=== PATIENT | female | born 1965 | race Caucasian/White ===

== ENCOUNTER 2025-01-08 09:35 | Emergency (ER) | payer BC, SELFPAY ==
[2025-01-08 09:37] VITALS: BP 218/135
--- NOTE | 2025-01-08 10:10 | ED.GENMED ---
History of Present Illness
General
Chief Complaint: Blood Pressure Problem
Source: patient
Time Seen by Provider: 01/08/25 09:57
History of Present Illness
History of Present Illness:
59-year-old female presents to the emergency room for evaluation of elevated blood pressure. Patient was advised to seek treatment by her dentist few days ago when she had gone for a crown. They took her blood pressure several times noting it to
be high in the 190s. Patient has taken her blood pressure several times with a cuff at home and at [facility] it has always been pretty high. She denies any significant chest pain, shortness of breath, abdominal pain or back pain. She does occasionally
feel like her right eye twitches. She has some right shoulder pain which she attributes to Pilates. During the night while sleeping she is having some chest discomfort which is gone now. This prompted her to finally come for evaluation. She does
have a primary care doctor but has not seen them in a couple years. She does not recall ever being advised to start blood pressure medication. She does not smoke or drink alcohol.
Phy Exam
Physical Exam
Physical Exam:
General: Awake, Alert, Oriented X3. No acute distress.
Vitals: Hypertensive
Head: Atraumatic
Eyes: Pupils equal, EOMI
Throat: Airway intact, no exudates
Neck: Trachea midline
Lungs: Clear and equal b/l
Heart: Regular rate, no murmurs
Abd: Soft, Nontender, No pulsatile mass
Neuro: Nonfocal
Skin: Warm, dry, no rash
Extremities: pulses equal b/l, no edema
Course
Orders/Labs/Results
Orders:
Orders
01/08/25 09:36
Electrocardiogram (*1) Urgent
Reason for Study: Chest Pain
EKG- Treatment ONCE
01/08/25 10:28
Basic Metabolic Panel Urgent
Complete Blood Count/With Diff Urgent
TSH Reflex To Free T4 Urgent
Troponin I Urgent
Abnormal Lab Results
01/08/25
10:28
WBC 3.5 L 10^3/uL
(4.8-10.8)
RBC 4.12 L 10^6/uL
(4.20-5.40)
MCH 31.3 H pg
(27.0-31.0)
MPV 10.7 H fL
(7.4-10.4)
Absolute Lymphs (auto) 1.1 L 10^3/uL
(1.2-3.4)
Monocytes % 12.1 H %
(1.7-9.3)
Glucose 102 H mg/dl
(70-99)
01/08/25 10:28
01/08/25 10:28
Vital Signs
Initial and Last Documented VS:
Initial Vital Signs
Temp Pulse Resp BP Pulse Ox
98.4 F 83 16 218/135 99
01/08/25 09:37 01/08/25 09:37 01/08/25 09:37 01/08/25 09:37 01/08/25 09:37
Last Documented Vital Signs
Temp Pulse Resp BP Pulse Ox
98.4 F 66 18 163/94 96
01/08/25 09:37 01/08/25 11:45 01/08/25 11:45 01/08/25 11:29 01/08/25 11:45
MDM/Problems Addressed
Differential Diagnosis Includes:
Uncontrolled hypertension, hypertensive emergency, electrolyte abnormality, renal failure
MDM/Problems Addressed:
Patient presents with elevated blood pressures. She has had elevated blood pressures at her dentist appointment as well as at home over several measurements. She denies any chest pain, shortness of breath, back pain or abdominal pain. There is no
evidence of endorgan dysfunction on testing here. Will start her on amlodipine. Recommend she felt with her primary care doctor in 2 weeks.
*Pulse Oximetry
SaO2: 99
Oxygen Mode of Delivery: Room air
Patient hypoxic: no
*EKG
Interpreted by ED Provider?: Yes
Interpretation: normal
Heart Rate: 71
Rate: normal
Rhythm: sinus
[place]: normal axis
Interval: normal interval
QRS Pattern: normal QRS
Ischemia: no ischemia
*Customer Logistics Manager Interpretation
Rate: normal
Interpretation: normal
Rhythm: sinus
*Critical Care Note
Total Time (30-74mins, 75-104mins- exclusive of procedures): Not Applicable
ED Attending Note
-
Portions of this chart may have been created with voice recognition software.� Occasional wrong word or��sound alike� substitutions may have occurred due to the inherent limitations of voice recognition software.
Discharge Plan
Departure
Patient Disposition: Home (Routine Discharge)
Date of Disposition: 01/08/25
Time of Disposition: 11:43
Patient with high blood pressure during this ER visit?: Yes
Condition: Good
Discharge Problem:
Uncontrolled hypertension
Instructions: High Blood Pressure (DC)
Prescriptions:
New
amlodipine 5 mg tablet
5 mg PO DAILY Qty: 30 0RF
Referrals:
Karlie Phoenix MD [Family Provider, Internal Medicine]
Activity Restrictions/Additional Instructions:
You blood pressure is clearly elevated enough to justify treatment. I have sent a prescription for a blood pressure medication. You should follow up with your primary care provider in a couple weeks to evaluate your response to the medication.
Interventions
Interventions:
*Risk Screen - Suicide Last Done: 01/08/25 10:32
*General Assessment Last Done: 01/08/25 10:32
*Neglect/Abuse Screening Last Done: 01/08/25 10:32
*ED COVID-19 Vaccine History Last Done: 01/08/25 10:32
*Nursing Disposition Last Done: 01/08/25 11:59
ED- Cardiac Assessment Last Done: 01/08/25 10:32
ED- Neurological Assessment Last Done: 01/08/25 10:32
ED- Pulmonary Assessment Last Done: 01/08/25 10:32
Discharge Date and Time
Discharge Date/Time: 01/08/25 12:01
Print Language: GREEK
[2025-01-08 10:29] VITALS: BP 169/92
[2025-01-08 10:31] VITALS: BMI 24.9
[2025-01-08 10:46] LABS: Hematocrit 38.8 % (37.0-47.0); Hemoglobin 12.9 g/dL (12.0-16.0); Mean Corp Hgb Conc. 33.2 g/dL (33.0-37.0); Mean Corpuscular Volume 94.2 fL (81.0-99.0); Nucleated Red Blood Cells % 0 %; Platelet Count 222 10^3/uL (130-400); Red Cell Dist. Width 13.2 % (11.5-14.5)
[2025-01-08 10:59] LABS: Blood Urea Nitrogen 12 mg/dl (7-17); Calcium 9.2 mg/dl (8.4-10.2); Carbon Dioxide 27 mmol/L (22-30); Chloride 107 mmol/L (98-107); Estimated Creatinine Clearance 101 ml/min; Glucose 102 mg/dl (70-99); Potassium 4.9 mmol/L (3.5-5.1); Sodium 138 mmol/L (135-145); eGFR > 60.00
[2025-01-08 11:00] VITALS: BP 163/99
[2025-01-08 11:13] LABS: Troponin I < 0.012 ng/ml
[2025-01-08 11:29] VITALS: BP 163/94
== END 2025-01-08 12:01 | disposition home or self-care (01) ==
LOC: EMR 09:35
PROVIDERS: EMERGENCY PHYSICIAN Emergency Medicine; FAMILY PHYSICIAN Internal Medicine
DX: I10 Essential (primary) hypertension (principal); R07.89 Other chest pain; M25.511 Pain in right shoulder
CPT/HCPCS: 99284; 80048; 84443; 84484; 85025; 93005